=== PATIENT | male | born 1975 | race Caucasian/White ===

== ENCOUNTER 2020-08-08 09:42 | Emergency (ER) | payer MEDICAID ==
[2020-08-08] MEDS ORDERED: Sodium Chloride 0.9% 1000 ML 1,000 ML IV STA (10:04)
[2020-08-08] MEDS ORDERED: TORAdol 30 mg Injection IV ONE (10:13)
[2020-08-08] MEDS ORDERED: Zofran 4 MG/2 ML VIAL IV ONE (10:13)
[2020-08-08] MEDS ORDERED: Sodium Chloride 0.9% 1000 ML 1,000 ML ONE (10:15)
--- NOTE | 2020-08-08 10:16 | ERPHSYRPT ---
- History of Present Illness Time Seen by Provider: 08/08/20 10:00 Source: patient Exam Limitations: no limitations Patient Subjective Stated Complaint: dizziness, high BP, nausea, lightheaded, DAVID Triage Nursing Assessment: pt to ED c/o dizziness, lightheadedness, DAVID, high BP and nausea x2 days. pt states his dad checked BP at home two days ago and it was "stroke level" but pt unaware of exact measurement. BP 182/123 on arrival. pt does not personally have hx of HTN. pt also reports freq DAVID for last month or so. rates 5/10 DAVID today. Physician History: Patient is a 45-year-old male who denies past medical history presents to our ED with complaints of dizziness, mild headache nausea and lightheadedness. Patient states that he went to his father's house last Saturday. Patient had the symptoms at that time. Patient's blood pressure was checked. Patient states his father told him it was stroke level. Patient states he has been experiencing a mild headache for approximately 1 month. Headache rated 5 out of 10. No trauma no fever. No neck pain or photophobia. Symptoms are mild to moderate in intensity. No specific worsening improving factors. No chest pain or shortness of breath. Patient voices no other complaints or concerns at this time. Allergies/Adverse Reactions: guaifenesin [From Robitussin] Allergy (Severe, Verified 08/08/20 09:58) facial swelling Hx Tetanus, Diphtheria Vaccination/Date Given: Yes Hx Influenza Vaccination/Date Given: No Immunizations Up to Date: Yes Travel Risk - International Travel Have you traveled outside of the country in past 3 weeks: No - Coronavirus Screening Are you exhibiting any of the following symptoms?: No Close contact with a COVID-19 positive Pt in past 14-21 Days: No - Vaccine Status Have you recieved a Covid-19 vaccination: No - Review of Systems Constitutional: No Symptoms, No Fever, No Chills Eyes: No Symptoms Ears, Nose, & Throat: No Symptoms Respiratory: No Symptoms, No Cough, No Dyspnea Cardiac: No Symptoms, No Chest Pain, No Edema, No Syncope Abdominal/Gastrointestinal: No Symptoms, No Abdominal Pain, No Nausea, No Vomiting, No Diarrhea Genitourinary Symptoms: No Symptoms, No Dysuria Musculoskeletal: No Symptoms, No Back Pain, No Neck Pain Skin: No Symptoms, No Rash Neurological: No Symptoms, No Dizziness, No Focal Weakness, No Sensory Changes Psychological: No Symptoms Endocrine: No Symptoms Hematologic/Lymphatic: No Symptoms Immunological/Allergic: No Symptoms All Other Systems: Reviewed and Negative - Past Medical History Pertinent Past Medical History: No - Past Surgical History Past Surgical History: Yes Musculoskeletal: Orthopedic Surgery Other Surgical History: L leg trauma 2013, multi surgeries and skin graft - Social History Smoking Status: Never smoker Exposure to second hand smoke: No Drug Use: none Patient Lives Alone: No - Nursing Vital Signs Nursing Vital Signs: Initial Vital Signs Pulse Rate 92 H 08/08/20 09:47 Respiratory Rate 18 08/08/20 09:47 Blood Pressure 182/123 08/08/20 09:47 O2 Sat by Pulse Oximetry 97 08/08/20 09:47 Pain Scale Pain Intensity 4 - Physical Exam General Appearance: no apparent distress, alert Eye Exam: PERRL/EOMI, eyes nml inspection Ears, Nose, Throat Exam: normal ENT inspection, TMs normal, pharynx normal, moist mucous membranes Neck Exam: normal inspection, non-tender, supple, full range of motion Respiratory Exam: normal breath sounds, lungs clear, No respiratory distress Cardiovascular Exam: regular rate/rhythm, normal heart sounds, normal peripheral pulses Gastrointestinal/Abdomen Exam: soft, normal bowel sounds, No tenderness, No mass Back Exam: normal inspection, normal range of motion, No CVA tenderness, No vertebral tenderness Extremity Exam: normal inspection, normal range of motion, pelvis stable Neurologic Exam: alert, oriented x 3, cooperative, normal mood/affect, nml cerebellar function, nml station & gait, sensation nml, No motor deficits Skin Exam: normal color, warm, dry, No rash Lymphatic Exam: No adenopathy SpO2 Interpretation: normal SpO2: 97 O2 Delivery: Room Air - Course Nursing assessment & vital signs reviewed: Yes EKG Interpreted by Me: RATE (93), Sinus Rhythm, NORMAL AXIS, NORMAL INTERVALS Ordered Tests: Active Orders 24 hr Category Date Time Status EKG-ER Only STAT Care 08/08/20 10:04 Active IV Insertion STAT Care 08/08/20 10:04 Active CBC W DIFF Stat Lab 08/08/20 10:05 Completed CMP Stat Lab 08/08/20 10:05 Completed TROPONIN Q3H Lab 08/08/20 10:05 Completed TROPONIN Q3H Lab 08/08/20 13:15 Ordered TROPONIN Q3H Lab 08/08/20 16:15 Ordered TROPONIN Q3H Lab 08/08/20 19:15 Ordered TROPONIN Q3H Lab 08/08/20 22:15 Ordered Medication Summary Generic Name Dose Route Start Last Admin Trade Name Carlos PRN Reason Stop Dose Admin Lisinopril 5 mg 08/08/20 11:24 Zestril 5 Mg PO 08/08/20 11:25 STAT STA Discontinued Medications Generic Name Dose Route Start Last Admin Trade Name Carlos PRN Reason Stop Dose Admin Sodium Chloride 1,000 mls @ 999 mls/hr 08/08/20 10:04 08/08/20 10:15 Sodium Chloride 0.9% 1000 Ml IV 08/08/20 11:04 999 mls/hr .Q1H1M STA Administration Sodium Chloride Confirm 08/08/20 10:15 Sodium Chloride 0.9% 1000 Ml Administered 08/08/20 10:16 Dose 1,000 mls @ ud .ROUTE .STK-MED ONE Ketorolac Tromethamine 30 mg 08/08/20 10:13 08/08/20 10:18 Toradol 30 Mg Injection IV 08/08/20 10:14 30 mg STAT ONE Administration Ketorolac Tromethamine Confirm 08/08/20 10:17 Toradol 30 Mg Injection Administered 08/08/20 10:18 Dose 30 mg .ROUTE .STK-MED ONE Ondansetron HCl 4 mg 08/08/20 10:13 08/08/20 10:18 Zofran 4 Mg/2 Ml Vial IV 08/08/20 10:14 4 mg STAT ONE Administration Ondansetron HCl Confirm 08/08/20 10:17 Zofran 4 Mg/2 Ml Vial Administered 08/08/20 10:18 Dose 4 mg .ROUTE .STK-MED ONE Lab/Rad Data: Laboratory Result Diagrams 08/08/20 10:05 08/08/20 10:05 Laboratory Results 08/08/20 08/08/20 08/08/20 Range/Units 10:05 10:05 10:05 WBC 8.7 (4.0-10.5) K/mm3 RBC 6.28 H* (4.1-5.6) M/mm3 Hgb 18.5 H (12.5-18.0) gm/dl Hct 53.7 H (42-50) % MCV 85.5 (78-100) fl MCH 29.5 (26-32) pg MCHC 34.5 (32-36) g/dl RDW 14.1 H (11.5-14.0) % Plt Count 150 (150-450) K/mm3 MPV 11.6 H (7.5-11.0) fl Gran % 70.7 H (36.0-66.0) % Eos # (Auto) 0.16 (0-0.5) Absolute Lymphs (auto) 1.91 (1.0-4.6) Absolute Monos (auto) 0.42 (0.0-1.3) Lymphocytes % 22.1 L (24.0-44.0) % Monocytes % 4.9 (0.0-12.0) % Eosinophils % 1.8 (0.00-5.0) % Basophils % 0.5 (0.0-0.4) % Absolute Granulocytes 6.12 (1.4-6.9) Basophils # 0.04 (0-0.4) Sodium 138 (137-145) mmol/L Potassium 4.3 (3.5-5.1) mmol/L Chloride 107 (98-107) mmol/L Carbon Dioxide 22 (22-30) mmol/L Anion Gap 12.6 (5-15) MEQ/L BUN 12 (9-20) mg/dL Creatinine 0.98 (0.66-1.25) mg/dL Estimated GFR > 60.0 ML/MIN Glucose 92 (74-106) mg/dL Calcium 9.3 (8.4-10.2) mg/dL Total Bilirubin 0.80 (0.2-1.3) mg/dL AST 30 (17-59) U/L ALT 18 (0-50) U/L Alkaline Phosphatase 70 (38-126) U/L Troponin I < 0.012 (0.000-0.034) ng/mL Serum Total Protein 7.2 (6.3-8.2) g/dL Albumin 4.3 (3.5-5.0) g/dL - Progress Progress: improved Progress Note: Patient reassessed. He feels much better. Headache resolved. Patient is no longer lightheaded. Patient blood pressure remains elevated. He does not have a primary care physician that he follows up with regularly. Case discussed with Dr. Saldana. She advised starting 5 mg lisinopril every 12. She will follow up with patient as an outpatient. Patient was given Dr. Saldana's contact number. A prescription for lisinopril was forwarded the patient's pharmacy per Dr. Saldana's advice. Will discharge at this time. Patient agrees to follow- up with Dr. Saldana within 48 hours for reevaluation. He voices no other complaints or concerns at this time. 08/08/20 11:[address] Drea Will see patient in: office Counseled pt/family regarding: lab results, diagnosis, need for follow-up - Departure Departure Disposition: Home Clinical Impression: Hypertension, Acquired polycythemia Condition: Stable Critical Care Time: No Referrals: DOCTOR,NO FAMILY [Primary Care Provider] - KIAH PACE DO [ACTIVE STAFF] - Additional Instructions: Discharge/Care Plan BAO ROYAL was seen on 08/08/20 in the Emergency Room. The patient was counseled regarding Diagnosis,Lab results, Imaging studies, need for follow up and when to return to the Emergency Room. Prescriptions given: Discharge Note I have spoken with the patient and/or caregivers. I have explained the patient's condition, diagnosis and treatment plan based on the information available to me at this time. I have answered the patient's and/or caregiver's questions and addressed any concerns. The patient and/or caregivers have as good understanding of the patient's diagnosis, condition and treatment plan as can be expected at this point. The vital signs have been stable. The patient's condition is stable and appropriate for discharge from the emergency department. The patient will pursue further outpatient evaluation with the primary care physician or other designated or consulting physician as outlined in the discharge instructions. The patient and/or caregivers are agreeable to this plan of care and follow-up instructions have been explained in detail. The patient and/or caregivers have received these instruction. The patient/and or caregivers are aware that any significant change in condition or worsening of symptoms should prompt an immediate return to this or the closest emergency department or call 911. Prescriptions: Lisinopril 5 mg [Zestril 5 MG] 5 mg PO BID 10 Days #20 tablet
[2020-08-08] MEDS ORDERED: Zofran 4 MG/2 ML VIAL ONE (10:17)
[2020-08-08] MEDS ORDERED: TORAdol 30 mg Injection ONE (10:17)
[2020-08-08 10:20] LABS: Absolute Neutrophil Ct (ANC) 6.12 (1.4-6.9); BASOPHIL % 0.5 % (0.0-0.4); Basophil (Absolute #) 0.04 (0-0.4); Eosinophil % 1.8 % (0.00-5.0); Eosinophil (Absolute #) 0.16 (0-0.5); Hematocrit 53.7 % (42-50); Hemoglobin 18.5 gm/dl (12.5-18.0); Lymphocyte (Absolute #) 1.91 (1.0-4.6); Lymphocytes % 22.1 % (24.0-44.0); Mean Cell Volume 85.5 fl (78-100); Mean Corpuscular Hemoglobin 29.5 pg (26-32); Mean Corpuscular Hgb Concent. 34.5 g/dl (32-36); Mean Platelet Volume 11.6 fl (7.5-11.0); Monocyte (Absolute #) 0.42 (0.0-1.3); Monocytes % 4.9 % (0.0-12.0); Neutrophil % 70.7 % (36.0-66.0); Platelet Count 150 K/mm3 (150-450); Red Blood Count 6.28 M/mm3 (4.1-5.6); Red Cell Distribution Width 14.1 % (11.5-14.0); White Blood Count 8.7 K/mm3 (4.0-10.5)
[2020-08-08 10:41] LABS: ALBUMIN 4.3 g/dL (3.5-5.0); ALKALINE PHOSPHATASE 70 U/L (38-126); ANION GAP 12.6 MEQ/L (5-15); BLOOD UREA NITROGEN 12 mg/dL (9-20); CHLORIDE 107 mmol/L (98-107); Calcium 9.3 mg/dL (8.4-10.2); Carbon Dioxide 22 mmol/L (22-30); Creatinine 1 0.98 mg/dL (0.66-1.25); EST GLOMERULAR FILTRATION RATE > 60.0 ML/MIN; Glucose 92 mg/dL (74-106); Potassium 4.3 mmol/L (3.5-5.1); SGOT/AST 30 U/L (17-59); SGPT/ALT 18 U/L (0-50); SODIUM 138 mmol/L (137-145); Total Protein 7.2 g/dL (6.3-8.2)
[2020-08-08 11:06] VITALS: BP 156/118; PULSE 85; O2SAT 97
[2020-08-08] MEDS ORDERED: Zestril 5 MG PO STA (11:24)
== END 2020-08-08 11:38 | disposition home or self-care (01) ==
LOC: ED 09:42
DX: I10 Essential (primary) hypertension (principal); D75.1 Secondary polycythemia
CPT/HCPCS: 36415; 80053; 84484; 85025; 93005; 96374; 96375; 99284; J1885; J2405; A9270-GY